=== PATIENT | male | born 1995 | race Hispanic/Latino ===

== ENCOUNTER 2019-08-15 09:18 | Emergency (ER) | payer MEDICAID, OTHER ==
[2019-08-15] MEDS ORDERED: CEFTRIAXONE SODIUM 1 GM ONE (09:51)
[2019-08-15] MEDS ORDERED: SODIUM CHLORIDE 0.9% 100 ML IV ONE (09:52)
== END 2019-08-15 11:58 | disposition home or self-care (01) ==
LOC: EDH 09:18
DX: L03.116 Cellulitis of left lower limb (principal)
CPT/HCPCS: 36415; 73600; 80053; 82948; 85025; 96374; 99284; J0696

== ENCOUNTER 2020-05-13 14:21 | Emergency (ER) | payer OTHER ==
[2020-05-13] MEDS ORDERED: LIDOCAINE 1%-EPI 1:100,000 20 ML VIAL IJ ONE (14:44)
[2020-05-13] MEDS ORDERED: LIDOCAINE HCL 1% 20 ML VIAL ONE (14:48)
[2020-05-13] MEDS ORDERED: TETANUS/DIPHTHERIA TOXOID [ADULT] 0.5 ML VIAL IM ONE (15:15)
[2020-05-13] MEDS ORDERED: KETOROLAC TROMETHAMINE 30MG/ML ONE (15:27)
== END 2020-05-13 16:09 | disposition home or self-care (01) ==
LOC: EDH 14:21
DX: S61.412A Laceration without foreign body of left hand, initial encounter (principal); X58.XXXA Exposure to other specified factors, initial encounter; Y93.89 Activity, other specified; Y92.098 Other place in other non-institutional residence as the place of occurrence of the external cause; Y99.8 Other external cause status
CPT/HCPCS: 12042; 73130; 90471; 90714; 99284; J1885; 96372; J3490

== ENCOUNTER 2020-07-26 16:23 | Emergency (ER) | payer SELFPAY ==
[~2020-07-26] VITALS: Ht 180.3 cm; Wt 156.5 kg
[2020-07-26 16:25] VITALS: BP 143/100
[2020-07-26] MEDS ORDERED: CIPR7.5D OT (19:39)
[2020-07-26] MEDS ORDERED: IBUP-2070 PO (19:39)
[2020-07-26] MEDS ORDERED: CORTSOL OT (19:39)
[2020-07-26] MEDS ORDERED: LEVO750T46 PO (19:39)
[2020-07-26] MEDS ORDERED: KETOROLAC 30MG VIAL (30MG/ML) IM ONE (19:45)
== END 2020-07-26 19:50 | disposition home or self-care (01) ==
LOC: EDH 16:23 → MERGE 16:23 → EDH 19:50
DX: H60.92 Unspecified otitis externa, left ear (principal); E66.9 Obesity, unspecified; Z91.018 Allergy to other foods; Z79.899 Other long term (current) drug therapy; Z68.42 Body mass index [BMI] 45.0-49.9, adult
CPT/HCPCS: 96372; 99283; J1885